=== PATIENT | female | born 1985 | race Caucasian/White ===

== ENCOUNTER 2016-09-29 15:05 | Emergency (ER) | payer MEDICAID ==
[2016-09-29 15:23] VITALS: BP 121/83
[2016-09-29] MEDS ORDERED: Ketorolac 60 MG/2 ML SDV IM ONE (16:30)
--- NOTE | 2016-09-29 16:36 | EDM.PDOC ---
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 denies any trauma or repetitive motion - Related Data Allergies Allergy/AdvReac Type Severity Reaction Status Date / Time acetaminophen Allergy Swelling Verified 09/29/16 15:25 [From Tylenol-Codeine #3] codeine Allergy Swelling Verified 09/29/16 15:25 [From Tylenol-Codeine #3] Home Meds: Home Meds NK [No Known Home Meds] 09/29/16 [History] Past Medical History - Past Health History Medical/Surgical History: Denies Medical/Surgical History Social & Family History - Tobacco Use Smoking Status *Q: Current Every Day Smoker Years of Tobacco use: 13 Packs/Tins Daily: 0.3 Review of Systems - Review of Systems Review Of Systems: See Below Constitutional: Reports: No Symptoms Respiratory: Reports: No Symptoms Cardiovascular: Reports: No Symptoms GI/Abdominal: Reports: No Symptoms Musculoskeletal: Reports: Shoulder Pain ED EXAM, GENERAL - Physical Exam Exam: See Below Free Text/Narrative:: Examination of the left shoulder I don't appreciate any erythema there is no edema noted there is no specific point tenderness to palpation she has full range of motion the shoulder she does complain of pain with about 160 of abduction is no tenderness at the elbow radial pulses 2+ Exam Limited By: No Limitations General Appearance: Alert, WD/WN, No Apparent Distress Respiratory/Chest: No Respiratory Distress Course - Vital Signs Last Recorded V/S: Last Vital Signs Temp 97.2 F 09/29/16 15:29 Pulse 89 09/29/16 15:29 Resp 16 09/29/16 15:29 BP 121/83 09/29/16 15:29 Pulse Ox 97 09/29/16 15:29 - Orders/Labs/Meds Orders: Active Orders 24 hr Category Date Time Status Shoulder Comp Lt [CR] Stat Exams 09/29/16 16:30 Taken Meds: Medications Discontinued Medications Generic Name Dose Route Start Last Admin Trade Name Freq PRN Reason Stop Dose Admin Hydrocodone Bitart/Acetaminophen 1 tab 09/29/16 17:19 09/29/16 17:29 [place] 325-5 Mg PO 09/29/16 17:20 1 tab ONETIME ONE Administration Ketorolac Tromethamine 60 mg 09/29/16 16:30 09/29/16 16:51 Toradol IM 09/29/16 16:31 60 mg ONETIME ONE Administration Departure - Departure Time of Disposition: 18:56 Disposition: Home, Self-Care 01 Condition: Good Clinical Impression: Shoulder pain Qualifiers: Chronicity: acute Laterality: left Qualified Code(s): M25.512 - Pain in left shoulder - Discharge Information Forms: ED Department Discharge Additional Instructions: Use ibuprofen for baseline pain control, use hydrocodone for breakthrough pain, please follow-up with orthopedic clinic - My Orders Last 24 Hours: My Active Orders 09/29/16 16:30 Shoulder Comp Lt [CR] Stat - Assessment/Plan Last 24 Hours: My Active Orders 09/29/16 16:30 Shoulder Comp Lt [CR] Stat Plan: Assessment Acuity = acute Site and laterality = left shoulder pain Etiology = suspicious for repetitive motion injury Manifestations = none Location of injury = home Lab values = x-ray I did review films myself I cannot appreciate any acute process, the official read from radiology is pending Plan She had no improvement with the Toradol injection provided she had some improvement with the Vicodin plan is discharge home with Vicodin set up for orthopedic follow-up in clinic Patient was in agreement with the plan all questions were answered, they were instructed to return to the emergency department or call for worsening symptoms. This note was dictated using [employer] voice recognition software please call with any questions.
[2016-09-29] MEDS ORDERED: Acetaminophen/HYDROcodone 325-5 MG Tab PO ONE (17:19)
--- NOTE | 2016-09-30 08:42 | CR ---
Shoulder Comp Lt HISTORY: pain FINDINGS: No acute fracture or dislocation is identified. Bony architecture and joint spaces are preserved. AC joint is not widened. Soft tissues are unremarkable. IMPRESSION: No acute left shoulder abnormality identified.
== END 2016-09-29 19:05 | disposition home or self-care (01) ==
LOC: JP.ED 15:05
DX: M25.512 Pain in left shoulder (principal); F17.210 Nicotine dependence, cigarettes, uncomplicated; Z88.5 Allergy status to narcotic agent; Z88.6 Allergy status to analgesic agent
CPT/HCPCS: 73030; 96372; 99284; A9270; J1885; 99283

== ENCOUNTER 2016-11-29 21:01 | Emergency (ER) | payer MEDICAID ==
[2016-11-29 22:20] VITALS: BP 121/73
--- NOTE | 2016-11-29 22:51 | EDM.PDOC ---
[id number] Complaint: R FOOT PAIN Time Seen by Provider: 11/29/16 22:20 Source of Information: Reports: Patient History Limitations: Reports: No Limitations - History of Present Illness INITIAL COMMENTS - FREE TEXT/NARRATIVE: 31-year-old female with an intermittent sharp pain under her right foot that at times radiates up her leg. It's been bothering her for several days. Not currently hurting. No specific trauma, fever, rash, or swelling. Onset: Gradual (Over the past several days) Location: Reports: Lower Extremity, Right Quality: Reports: Sharp, Stabbing Severity: Mild Associated Symptoms: Reports: No Other Symptoms Right Feet Pain Score (Numeric/FACES): 7 - Related Data Allergies Allergy/AdvReac Type Severity Reaction Status Date / Time acetaminophen Allergy Swelling Verified 09/29/16 15:25 [From Tylenol-Codeine #3] codeine Allergy Swelling Verified 09/29/16 15:25 [From Tylenol-Codeine #3] Home Meds: Home Meds NK [No Known Home Meds] 09/29/16 [History] Past Medical History - Past Health History Medical/Surgical History: Denies Medical/Surgical History Social & Family History - Family History Family Medical History: Noncontributory - Tobacco Use Smoking Status *Q: Current Every Day Smoker Years of Tobacco use: 16 Packs/Tins Daily: 0.5 - Caffeine Use Caffeine Use: Reports: Energy Drinks, Soda - Recreational Drug Use Recreational Drug Use: No Review of Systems - Review of Systems Review Of Systems: See Below Constitutional: Denies: Fever Respiratory: Denies: Shortness of Breath Cardiovascular: Denies: Chest Pain GI/Abdominal: Denies: Abdominal Pain Skin: Denies: Rash Neurological: Reports: Tingling Psychiatric: Reports: No Symptoms ED EXAM, GENERAL - Physical Exam Exam: See Below Exam Limited By: No Limitations General Appearance: Alert, No Apparent Distress Respiratory/Chest: No Respiratory Distress, Lungs Clear Cardiovascular: Regular Rate, Rhythm Extremities: Other (Exam is otherwise limited to the right lower extremity. No asymmetry to the left, no evidence of trauma, I cannot reproduce her pain with palpation.) Course - Vital Signs Last Recorded V/S: Last Vital Signs Temp 97.2 F 11/29/16 22:17 Pulse 99 11/29/16 22:17 Resp 16 11/29/16 22:17 BP 121/73 11/29/16 22:17 Pulse Ox 100 11/29/16 22:17 - Orders/Labs/Meds Orders: Active Orders 24 hr Category Date Time Status Foot Comp Min 3V Rt [CR] Stat Exams 11/29/16 22:33 Taken - Re-Assessments/Exams Free Text/Narrative Re-Assessment/Exam: 11/29/16 22:50 Foot x-ray was obtained. 11/29/16 23:14 Foot x-ray looks normal. There may be some mild osteoporosis. Encouraged her to take an anti-inflammatory twice a day and if symptoms don't improve she can see podiatry at the clinic. Departure - Departure Time of Disposition: 23:43 Disposition: Home, Self-Care 01 Condition: Good Clinical Impression: Foot pain, right - Discharge Information Instructions: Foot Contusion Referrals: PCP,None [Primary Care Provider] - Forms: ED Department Discharge Care Plan Goals: Try naproxen or ibuprofen on a regular basis for 2-3 days and recheck at the clinic if not improving satisfactorily. Increase activity as tolerated. - My Orders Last 24 Hours: My Active Orders 11/29/16 22:33 Foot Comp Min 3V Rt [CR] Stat - Assessment/Plan Last 24 Hours: My Active Orders 11/29/16 22:33 Foot Comp Min 3V Rt [CR] Stat
--- NOTE | 2016-11-30 10:45 | CR ---
Foot Comp Min 3V Rt INDICATION: sharp pain under foot FINDINGS: Negative right foot.
== END 2016-11-29 23:38 | disposition home or self-care (01) ==
LOC: JP.ED 21:01
DX: M79.671 Pain in right foot (principal); F17.210 Nicotine dependence, cigarettes, uncomplicated; Z88.5 Allergy status to narcotic agent
CPT/HCPCS: 73630-26-RT; 73630-RT; 99284

== ENCOUNTER 2021-06-17 19:27 | Emergency (ER) | payer MEDICAID ==
[2021-06-17] MEDS: Ketorolac 30 MG/ML SDV IVPUSH ONE (20:42)
[2021-06-17] MEDS: Sodium Chloride 0.9% 10 ML Syringe FLUSH PRN (20:43)
[2021-06-17 21:42] VITALS: BP 110/67; PULSE 88
[2021-06-17] MEDS: Iopamidol 612 MG/ML 100 ML Bottle IV SCH (21:56)
[2021-06-17] MEDS: Sodium Chloride 0.9% 75 ML IV SCH (21:56)
== END 2021-06-17 23:05 | disposition home or self-care (01) ==
LOC: JP.ED 19:27
DX: N83.201 Unspecified ovarian cyst, right side (principal); R07.89 Other chest pain; M25.512 Pain in left shoulder; Z72.0 Tobacco use
CPT/HCPCS: 36415; 74177; 80048; 80076; 81001; 81025; 84443; 84484; 85025; 85379; 86140; 93005; 93010; 96374; 99283; 99285-25; J1885; Q9967

== ENCOUNTER 2021-08-04 01:56 | Emergency (ER) | payer MEDICAID ==
[2021-08-04 02:08] VITALS: BP 133/93; PULSE 101
== END 2021-08-04 02:39 | disposition home or self-care (01) ==
LOC: JP.ED 01:56
DX: S93.402A Sprain of unspecified ligament of left ankle, initial encounter (principal); F17.210 Nicotine dependence, cigarettes, uncomplicated; W10.1XXA Fall (on)(from) sidewalk curb, initial encounter
CPT/HCPCS: 73610-26-LT; 73610-LT; 99281; 99283-25

== ENCOUNTER 2022-02-14 16:00 | Emergency (ER) | payer MEDICAID ==
[2022-02-14 17:12] LABS: ESTIMATED GFR 75 mL/min (>60)
[2022-02-14] MEDS ORDERED: Iopamidol 612 MG/ML 100 ML Bottle IV ONE (17:45)
[2022-02-14] MEDS ORDERED: Sodium Chloride 0.9% 1,000 ML IV SCH (17:45)
[2022-02-14] MEDS ORDERED: Sodium Chloride 0.9% 50 ML IV ONE (17:45)
[2022-02-14 18:23] VITALS: BP 123/75; PULSE 90
[2022-02-14] MEDS ORDERED: Ketorolac 30 MG/ML SDV IVPUSH ONE (19:10)
[2022-02-14] MEDS ORDERED: Bacitracin Oint 1 GM U/D Packet TOP ONE (19:18)
[2022-02-14] MEDS ORDERED: Diphtheria,Pertussis(Acell),Tetanus Vaccine 0.5 ML Syringe IM ONE (19:18)
== END 2022-02-14 20:17 | disposition home or self-care (01) ==
LOC: JP.ED 16:00
DX: R10.31 Right lower quadrant pain (principal)
CPT/HCPCS: 36415; 74177; 80053; 81001; 81025; 85025; 86140; 96361; 96374; 99284; J1885; J3490; J7030; Q9967

== ENCOUNTER 2022-04-09 18:30 | Emergency (ER) | payer MEDICAID ==
[2022-04-09 18:43] VITALS: BP 131/95; PULSE 104
== END 2022-04-09 20:20 | disposition home or self-care (01) ==
LOC: JP.ED 18:30
DX: M62.838 Other muscle spasm (principal)
CPT/HCPCS: 72050; 99283

== ENCOUNTER 2022-06-26 06:48 | Day surgery (SDC) | payer MEDICAID ==
[~2022-06-26 06:48] MED LIST: Bupivacaine 0.5% 50 ML MDV ONE; Meropenem 500 MG SDV ONE
[2022-06-26] MEDS ORDERED: Rocuronium 50 MG/5 ML Vial ONE (07:15)
[2022-06-26] MEDS ORDERED: fentaNYL 250 MCG/5 ML SDV ONE ×2 (07:15→10:30)
[2022-06-26] MEDS ORDERED: Succinylcholine 200 MG/10 ML MDV ONE (07:15)
[2022-06-26] MEDS ORDERED: Dexamethasone 4 MG/ML SDV ONE (07:15)
[2022-06-26] MEDS ORDERED: Propofol 200 MG/20 ML SDV ONE (07:15)
[2022-06-26] MEDS ORDERED: Ondansetron 4 MG/2 ML SDV ONE (07:15)
[2022-06-26] MEDS ORDERED: Glycopyrrolate 0.2 MG/ML 5 ML MDV ONE (07:15)
[2022-06-26] MEDS ORDERED: Neostigmine Methylsulfate 1 MG/ML 5 ML Syringe ONE (07:15)
[2022-06-26] MEDS ORDERED: Albuterol/Ipratropium 3.0-0.5 MG/3 ML Neb Soln NEB ONE (07:30)
[2022-06-26] MEDS ORDERED: Indocyanine Green 25 MG SDV IV ONE (07:30)
[2022-06-26] MEDS ORDERED: Celecoxib 200 MG Cap PO ONE (07:30)
[2022-06-26] MEDS ORDERED: cefOXitin 2 GM in Sodium Chloride 0.9% 50 ML IV ONE (07:30)
[2022-06-26] MEDS ORDERED: Scopolamine 1.5 MG Transdermal Patch TOP SCH (07:30)
[2022-06-26] MEDS ORDERED: cefOXitin 2 GM in Sodium Chloride 0.9% 100 ML IV ONE (07:30)
[2022-06-26] MEDS ORDERED: Dextrose 5%-Lactated Ringers 1,000 ML IV SCH (08:00)
[2022-06-26] MEDS ORDERED: Meropenem 500 MG in Sodium Chloride 0.9% 50 ML IV ONE (08:30)
[2022-06-26] MEDS ORDERED: Ketamine 17 MG in Sodium Chloride 0.9% 19.83 ML IV SCH (08:45)
[2022-06-26] MEDS ORDERED: Ketamine 500 MG/5 ML MDV IV SCH (08:45)
[2022-06-26] MEDS ORDERED: Bupivacaine 0.5% 50 ML MDV INJECT ONE ×2 (10:40)
[2022-06-26] MEDS ORDERED: Lidocaine 1% with EPINEPHrine 1:100,000 20 ML MDV INJECT ONE ×2 (10:40)
[2022-06-26] MEDS: Lidocaine 1% with EPINEPHrine 1:100,000 50 ML MDV ONE ×2 (10:40→15:34)
[2022-06-26] MEDS ORDERED: Labetalol 20 MG/4 ML Syringe ONE (11:14)
[2022-06-26] MEDS ORDERED: Ketorolac 30 MG/ML SDV ONE (11:19)
[2022-06-26] MEDS ORDERED: Sugammadex Sodium 200 MG/2 ML VIAL ONE (11:27)
[2022-06-26] MEDS ORDERED: Naloxone 0.4 MG/ML SDV ONE (11:33)
[2022-06-26] MEDS ORDERED: HYDROmorphone 2 MG Tab PO PRN (12:24)
[2022-06-26] MEDS ORDERED: Ondansetron 4 MG/2 ML SDV IVPUSH PRN (12:25)
[2022-06-26 14:32] VITALS: BP 103/61; PULSE 69
== END 2022-06-26 15:10 | disposition home or self-care (01) ==
LOC: JP.SDS 06:48
PROVIDERS: ATTEND Surgery
DX: K81.1 Chronic cholecystitis (principal); K82.8 Other specified diseases of gallbladder; G89.29 Other chronic pain; M25.512 Pain in left shoulder; M53.3 Sacrococcygeal disorders, not elsewhere classified; E66.09 Other obesity due to excess calories; Z87.891 Personal history of nicotine dependence; Z79.899 Other long term (current) drug therapy; Z68.35 Body mass index [BMI] 35.0-35.9, adult
CPT/HCPCS: 47562; 64520; 81025; 88304; 94640; A9270; J0131; J0171; J0330; J0694; J1100; J1885; J2310; J2405; J2704; J2710; J2795; J3010; J3490; J7121; J2185; J7620

== ENCOUNTER 2022-09-22 10:08 | Emergency (ER) | payer MEDICAID ==
[2022-09-22 10:35] VITALS: BP 120/98; PULSE 118
[2022-09-22 10:37] LABS: BASOPHILS ABSOLUTE AUTO 0.05 K/uL (0.00-0.10); BASOPHILS PERCENT AUTO 0.7 % (0.1-1.3); EOSINOPHILS ABSOLUTE AUTO 0.19 K/uL (0.00-0.40); EOSINOPHILS PERCENT AUTO 2.5 % (0.0-5.4); HEMATOCRIT 40.2 % (34.3-46.0); HEMOGLOBIN 13.2 g/dL (11.2-15.5); IMMATURE GRAN PERCENT AUTO 0.3 % (0.0-0.7); LYMPHOCYTES ABSOLUTE AUTO 1.68 K/uL (0.8-3.3); LYMPHOCYTES PERCENT AUTO 22.2 % (11.4-47.7); MEAN CORPUSCULAR HEMOGLOBIN 27.3 pg (31.6-35.5); MEAN CORPUSCULAR HGB CONC 32.8 g/dL (31.6-35.5); MEAN CORPUSCULAR VOLUME 83.1 fL (81.4-99.0); MONOCYTES ABSOLUTE AUTO 0.33 K/uL (0.20-0.90); MONOCYTES PERCENT AUTO 4.4 % (3.3-12.6); NEUTROPHILS PERCENT AUTO 69.9 % (40.0-78.1); PLATELET COUNT,PLT 207 K/uL (130-375); RED BLOOD CELL COUNT 4.84 M/uL (3.77-5.24); WHITE BLOOD CELL COUNT,WBC 7.6 K/uL (3.2-11.0)
[2022-09-22 10:38] LABS: IMMATURE GRAN ABSOLUTE AUTO 0.02 K/uL (0.00-0.23)
[2022-09-22 11:05] LABS: A/G RATIO 0.8 (1.2-2.2); ALANINE AMINOTRANSFERASE,ALT 19 U/L (12-78); ALBUMIN 3.1 g/dL (3.4-5.0); ALKALINE PHOSPHATASE 88 U/L (46-116); ASPARTATE AMNIOTRANSFERASE,AST 18 U/L (15-37); BILIRUBIN TOTAL 0.3 mg/dL (0.2-1.0); BLOOD UREA NITROGEN,BUN 8 mg/dL (7-18); C-REACTIVE PROTEIN 0.85 mg/dL (0.0-0.3); CALCIUM 8.7 mg/dL (8.5-10.1); CARBON DIOXIDE,CO2 24 mmol/L (21-32); CHLORIDE,CL 106 mmol/L (100-108); CREATININE 0.9 mg/dL (0.6-1.0); EST CRCL DRUG DOSING (CG) 80.12 mL/min; ESTIMATED GFR 84 mL/min (>60); GLUCOSE RANDOM 111 mg/dL (74-106); POTASSIUM,K 3.7 mmol/L (3.6-5.2); PROTEIN TOTAL,TP 6.8 g/dL (6.4-8.2); SODIUM,NA 139 mmol/L (140-148)
[2022-09-22 11:06] LABS: ANION GAP 12.7 mmol/L (5.0-14.0); TROPONIN I HIGH SENSITIVITY < 4.0 pg/mL (<=60.3)
== END 2022-09-22 13:08 | disposition home or self-care (01) ==
LOC: JP.ED 10:08
DX: F41.9 Anxiety disorder, unspecified (principal); E66.9 Obesity, unspecified; Z68.34 Body mass index [BMI] 34.0-34.9, adult
CPT/HCPCS: 36415; 80053; 84484; 85025; 85379; 86140; 93005; 99285

== ENCOUNTER 2022-10-11 14:36 | Emergency (ER) | payer OTHER, MEDICAID ==
[2022-10-11] MEDS ORDERED: Ketorolac 30 MG/ML SDV IM ONE (16:37)
[2022-10-11 18:24] VITALS: BP 97/64; PULSE 55
== END 2022-10-11 18:40 | disposition home or self-care (01) ==
LOC: JP.ED 14:36
DX: R07.89 Other chest pain (principal); E66.9 Obesity, unspecified; Z68.33 Body mass index [BMI] 33.0-33.9, adult; W18.40XA Slipping, tripping and stumbling without falling, unspecified, initial encounter; Z79.899 Other long term (current) drug therapy
CPT/HCPCS: 71250; 96372; 99283; J1885

== ENCOUNTER 2024-05-05 20:47 | Emergency (ER) | payer MEDICAID ==
[2024-05-05 21:52] VITALS: BP 122/80; PULSE 77
[2024-05-05 22:13] LABS: BASOPHILS ABSOLUTE AUTO 0.04 K/uL (0.00-0.10); BASOPHILS PERCENT AUTO 0.6 % (0.1-1.3); EOSINOPHILS ABSOLUTE AUTO 0.11 K/uL (0.00-0.40); EOSINOPHILS PERCENT AUTO 1.7 % (0.0-5.4); HEMATOCRIT 36.4 % (34.3-46.0); HEMOGLOBIN 12.7 g/dL (11.2-15.5); IMMATURE GRAN PERCENT AUTO 0.2 % (0.0-0.7); LYMPHOCYTES ABSOLUTE AUTO 1.65 K/uL (0.8-3.3); LYMPHOCYTES PERCENT AUTO 25.8 % (11.4-47.7); MEAN CORPUSCULAR HEMOGLOBIN 30.6 pg (31.6-35.5); MEAN CORPUSCULAR HGB CONC 34.9 g/dL (31.6-35.5); MEAN CORPUSCULAR VOLUME 87.7 fL (81.4-99.0); MONOCYTES ABSOLUTE AUTO 0.45 K/uL (0.20-0.90); NEUTROPHILS ABSOLUTE AUTO 4.13 K/uL (1.0-7.6); NEUTROPHILS PERCENT AUTO 64.7 % (40.0-78.1); PLATELET COUNT,PLT 153 K/uL (130-375); RED BLOOD CELL COUNT 4.15 M/uL (3.77-5.24); WHITE BLOOD CELL COUNT,WBC 6.4 K/uL (3.2-11.0)
[2024-05-05 22:18] LABS: IMMATURE GRAN ABSOLUTE AUTO 0.01 K/uL (0.00-0.23)
[2024-05-05 22:31] LABS: BILIRUBIN,URINE NEGATIVE (NEGATIVE); COLOR,URINE YELLOW (YELLOW); GLUCOSE,URINE NEGATIVE (NEGATIVE); KETONES,URINE NEGATIVE (NEGATIVE); LEUKOCYTE ESTERASE,URINE TRACE (NEGATIVE); NITRITE,URINE NEGATIVE (NEGATIVE); OCCULT BLOOD,URINE NEGATIVE (NEGATIVE); PH,URINE 6.5 (5.0-8.0); PROTEIN,URINE NEGATIVE (NEGATIVE); UROBILINOGEN,URINE 0.2 EU/dL (0.2-1.0)
[2024-05-05 22:34] LABS: ALANINE AMINOTRANSFERASE,ALT 24 U/L (12-78); ALBUMIN 3.5 g/dL (3.4-5.0); ALKALINE PHOSPHATASE 79 U/L (46-116); ASPARTATE AMNIOTRANSFERASE,AST 21 U/L (15-37); BILIRUBIN TOTAL 0.2 mg/dL (0.2-1.0); BLOOD UREA NITROGEN,BUN 11 mg/dL (7-18); CALCIUM 8.8 mg/dL (8.5-10.1); CARBON DIOXIDE,CO2 29 mmol/L (21-32); CHLORIDE,CL 104 mmol/L (100-108); EST CRCL DRUG DOSING (CG) 74.18 mL/min; ESTIMATED GFR 74 mL/min (>60); GLUCOSE RANDOM 84 mg/dL (74-106); POTASSIUM,K 3.4 mmol/L (3.6-5.2); SODIUM,NA 141 mmol/L (140-148)
[2024-05-05 22:35] LABS: ANION GAP 11.4 mmol/L (5.0-14.0)
[2024-05-05 22:36] LABS: PROTHROMBIN TIME 10.4 sec (9.2-10.6); PTT,PARTIAL THROMBOPLSTIN TIME 26.1 sec (21.8-27.3)
[2024-05-05 22:36] LABS: AMORPHOUS SEDIMENT,URINE NOT SEEN; APPEARANCE,URINE CLOUDY (CLEAR); BACTERIA,URINE MANY; EPITHELIAL CELLS,URINE FEW; MUCUS,URINE NOT SEEN; RBC,URINE 0-5 (0-5)
[2024-05-05] MEDS: Ciprofloxacin 500 MG Tab PO ONE (23:33)
== END 2024-05-05 23:39 | disposition home or self-care (01) ==
LOC: JP.ED 20:47
DX: S60.211A Contusion of right wrist, initial encounter (principal); N39.0 Urinary tract infection, site not specified; E66.9 Obesity, unspecified; Z79.899 Other long term (current) drug therapy; Z68.25 Body mass index [BMI] 25.0-25.9, adult; X58.XXXA Exposure to other specified factors, initial encounter
CPT/HCPCS: 36415; 80053; 81001; 85025; 85610; 85730; 87086; 87088; 87186; 99283; A9270

== ENCOUNTER 2024-10-06 17:39 | Emergency (ER) | payer MEDICAID ==
[2024-10-06 19:00] VITALS: BP 121/76; PULSE 64
[2024-10-06 19:01] LABS: BASOPHILS ABSOLUTE AUTO 0.08 K/uL (0.00-0.10); EOSINOPHILS ABSOLUTE AUTO 0.15 K/uL (0.00-0.40); EOSINOPHILS PERCENT AUTO 1.8 % (0.0-5.4); HEMATOCRIT 36.2 % (34.3-46.0); IMMATURE GRAN PERCENT AUTO 0.2 % (0.0-0.7); LYMPHOCYTES PERCENT AUTO 26.9 % (11.4-47.7); MEAN CORPUSCULAR HEMOGLOBIN 30.5 pg (31.6-35.5); MEAN CORPUSCULAR HGB CONC 33.1 g/dL (31.6-35.5); MEAN CORPUSCULAR VOLUME 91.9 fL (81.4-99.0); MONOCYTES ABSOLUTE AUTO 0.53 K/uL (0.20-0.90); MONOCYTES PERCENT AUTO 6.5 % (3.3-12.6); NEUTROPHILS ABSOLUTE AUTO 5.21 K/uL (1.0-7.6); NEUTROPHILS PERCENT AUTO 63.6 % (40.0-78.1); PLATELET COUNT,PLT 169 K/uL (130-375); RED BLOOD CELL COUNT 3.94 M/uL (3.77-5.24); WHITE BLOOD CELL COUNT,WBC 8.2 K/uL (3.2-11.0)
[2024-10-06 19:02] LABS: IMMATURE GRAN ABSOLUTE AUTO 0.02 K/uL (0.00-0.23)
[2024-10-06 19:22] LABS: A/G RATIO 1.1 (1.2-2.2); ALANINE AMINOTRANSFERASE,ALT 23 U/L (12-78); ALBUMIN 3.4 g/dL (3.4-5.0); ALKALINE PHOSPHATASE 62 U/L (46-116); ASPARTATE AMNIOTRANSFERASE,AST 14 U/L (15-37); BILIRUBIN TOTAL 0.4 mg/dL (0.2-1.0); BLOOD UREA NITROGEN,BUN 12 mg/dL (7-18); CALCIUM 9.5 mg/dL (8.5-10.1); CARBON DIOXIDE,CO2 27 mmol/L (21-32); CHLORIDE,CL 106 mmol/L (100-108); ESTIMATED GFR 73 mL/min (>60); GLUCOSE RANDOM 81 mg/dL (74-106); POTASSIUM,K 3.4 mmol/L (3.6-5.2); PROTEIN TOTAL,TP 6.5 g/dL (6.4-8.2); SODIUM,NA 143 mmol/L (140-148)
[2024-10-06] MEDS: Ondansetron 4 MG/2 ML SDV IVPUSH ONE (19:22)
[2024-10-06] MEDS: Sodium Chloride 0.9% 1,000 ML IV SCH (19:22)
[2024-10-06] MEDS: Ketorolac 15 MG/ML SDV IVPUSH ONE (19:22)
[2024-10-06 19:23] LABS: ANION GAP 13.4 mmol/L (5.0-14.0)
[2024-10-06] MEDS: Sodium Chloride 0.9% 80 ML IV SCH (19:41)
[2024-10-06] MEDS: Iopamidol 612 MG/ML 100 ML Bottle IV SCH (19:42)
[2024-10-06 20:03] LABS: APPEARANCE,URINE CLEAR (CLEAR); BILIRUBIN,URINE NEGATIVE (NEGATIVE); COLOR,URINE YELLOW (YELLOW); GLUCOSE,URINE NEGATIVE (NEGATIVE); KETONES,URINE NEGATIVE (NEGATIVE); LEUKOCYTE ESTERASE,URINE NEGATIVE (NEGATIVE); NITRITE,URINE NEGATIVE (NEGATIVE); OCCULT BLOOD,URINE SMALL (NEGATIVE); PH,URINE 5.5 (5.0-8.0); PROTEIN,URINE NEGATIVE (NEGATIVE); UROBILINOGEN,URINE 0.2 EU/dL (0.2-1.0)
[2024-10-06 20:15] LABS: AMORPHOUS SEDIMENT,URINE NOT SEEN; BACTERIA,URINE FEW; EPITHELIAL CELLS,URINE MANY; MUCUS,URINE NOT SEEN; RBC,URINE 0-5 (0-5); WBC,URINE 0-5 (0-5)
== END 2024-10-06 21:16 | disposition home or self-care (01) ==
LOC: JP.ED 17:39
DX: N83.201 Unspecified ovarian cyst, right side (principal); Z79.899 Other long term (current) drug therapy
CPT/HCPCS: 36415; 74177; 80053; 81001; 81025; 85025; 96361; 96374; 96375; 99284; J1885; J2405; J7030; Q9967

== ENCOUNTER 2025-03-02 14:40 | Emergency (ER) | payer MEDICAID ==
[2025-03-02 16:04] LABS: BASOPHILS ABSOLUTE AUTO 0.07 K/uL (0.00-0.10); BASOPHILS PERCENT AUTO 0.6 % (0.1-1.3); EOSINOPHILS ABSOLUTE AUTO 0.43 K/uL (0.00-0.40); EOSINOPHILS PERCENT AUTO 3.8 % (0.0-5.4); IMMATURE GRAN ABSOLUTE AUTO 0.06 K/uL (0.00-0.23); IMMATURE GRAN PERCENT AUTO 0.5 % (0.0-0.7); LYMPHOCYTES ABSOLUTE AUTO 2.36 K/uL (0.8-3.3); LYMPHOCYTES PERCENT AUTO 21.0 % (11.4-47.7); MONOCYTES ABSOLUTE AUTO 0.55 K/uL (0.20-0.90); MONOCYTES PERCENT AUTO 4.9 % (3.3-12.6); NEUTROPHILS ABSOLUTE AUTO 7.79 K/uL (1.0-7.6); NEUTROPHILS PERCENT AUTO 69.2 % (40.0-78.1); PLATELET COUNT,PLT 194 K/uL (130-375); RED BLOOD CELL COUNT 4.23 M/uL (3.77-5.24); WHITE BLOOD CELL COUNT,WBC 11.3 K/uL (3.2-11.0)
[2025-03-02] MEDS: Ondansetron 4 MG/2 ML SDV IVPUSH ONE (16:24)
[2025-03-02 16:30] LABS: A/G RATIO 0.7 (1.2-2.2); ALANINE AMINOTRANSFERASE,ALT 17 U/L (12-78); ASPARTATE AMNIOTRANSFERASE,AST 16 U/L (15-37); BILIRUBIN TOTAL 0.1 mg/dL (0.2-1.0); BLOOD UREA NITROGEN,BUN 11 mg/dL (7-18); CARBON DIOXIDE,CO2 27 mmol/L (21-32); CHLORIDE,CL 102 mmol/L (100-108); CREATININE 0.6 mg/dL (0.6-1.0); EST CRCL DRUG DOSING (CG) 122.42 mL/min; ESTIMATED GFR 117 mL/min (>60); GLUCOSE RANDOM 74 mg/dL (74-106); POTASSIUM,K 4.1 mmol/L (3.6-5.2); PROTEIN TOTAL,TP 6.6 g/dL (6.4-8.2); SODIUM,NA 137 mmol/L (140-148)
[2025-03-02 17:15] VITALS: BP 106/67; PULSE 66
[2025-03-02 17:25] LABS: APPEARANCE,URINE SLIGHTLY CLOUDY (CLEAR); GLUCOSE,URINE NEGATIVE (NEGATIVE); OCCULT BLOOD,URINE NEGATIVE (NEGATIVE)
[2025-03-02 17:27] LABS: AMPHETAMINES SCREEN, URINE NEGATIVE (NEGATIVE); METHADONE SCREEN, URINE NEGATIVE (NEGATIVE); METHAMPHETAMINES SCREEN, URINE NEGATIVE (NEGATIVE); OXYCODONE SCREEN,URINE NEGATIVE (NEGATIVE); PROPOXYPHENE SCREEN,URINE NEGATIVE (NEGATIVE); THC SCREEN,URINE 50 NG/ML PRESUMPTIVE POSITIVE (NEGATIVE)
== END 2025-03-02 18:38 | disposition home or self-care (01) ==
LOC: JP.ED 14:40
DX: O99.891 Other specified diseases and conditions complicating pregnancy (principal); R10.31 Right lower quadrant pain; E66.9 Obesity, unspecified; Z90.49 Acquired absence of other specified parts of digestive tract; Z86.16 Personal history of COVID-19; Z79.899 Other long term (current) drug therapy; Z87.891 Personal history of nicotine dependence; Z3A.14 14 weeks gestation of pregnancy; Z68.24 Body mass index [BMI] 24.0-24.9, adult
CPT/HCPCS: 36415; 76705; 80053; 80305; 81003; 83605; 83690; 83735; 84702; 85025; 86140; 96374; 99284; 99285; J2405; J7030